=== PATIENT | male | born 1980 | race African-American/Black ===

== ENCOUNTER 2017-07-17 13:29 | Outpatient (CLI) | payer OTHER | END 2017-07-17 13:30 | disposition home or self-care (01) | LOC: ULT 13:29 | PROVIDERS: ATTEND Internal Medicine | DX: I50.9 Heart failure, unspecified (principal); I08.3 Combined rheumatic disorders of mitral, aortic and tricuspid valves | CPT/HCPCS: 93306 ==

== ENCOUNTER 2019-08-28 23:27 | Inpatient (IN) | payer OTHER ==
[2019-08-29] MEDS ORDERED: Senokot S 8.6-50 MG TAB PO PRN (00:18)
[2019-08-29] MEDS ORDERED: Dextrose 50% Abboject 50 ML SYRINGE SLOW IVP PRN (00:20)
[2019-08-29] MEDS ORDERED: Dextrose 5% in Water 1,000 ML IV PRN (00:20)
[2019-08-29] MEDS ORDERED: Sodium Chloride 0.9% 1,000 ML IV SCH (00:30)
[2019-08-29 02:32] VITALS: BMI 42.8
[2019-08-29 05:12] LABS: #Lymphocytes 0.8 thou/uL (1.20-3.40); #Monocytes 0.4 thou/uL (0.11-0.59); #Neutrophils 2.1 thou/uL (1.40-6.50); %Basophils 0.4 % (0.0-1.0); %Eosinophils 0.4 % (0.0-10.0); %Monocytes 12.9 % (0.0-10.0); %Neutrophils 62.4 % (42.0-75.0); Hemoglobin 11.3 g/dL (14.0-18.0); Mean Corpuscular HGB CONC 33.9 g/dL (32.0-36.0); Mean Corpuscular Hemoglobin 27.7 pg (27.0-31.0); Mean Corpuscular Volume 81.8 fL (78.0-98.0); Mean Platelet Volume 9.2 fL (7.4-10.4); Platelet Count 142 thou/uL (130-400); RBC Distribution Width 12.1 % (11.5-14.5); Red Blood Cell (RBC) Count 4.08 mill/uL (4.70-6.10); White Blood Cell (WBC) Count 3.4 thou/uL (4.8-10.8)
[2019-08-29 05:13] LABS: ALT (SGPT) 18 U/L (8-55); AST (SGOT) 22 U/L (5-34); Albumin 3.5 g/dL (3.5-5.0); Alkaline Phosphatase 68 U/L (40-110); Anion Gap 14 mmol/L (10-20); BUN (Urea Nitrogen) 19 mg/dL (8.9-20.6); Bilirubin, Total 0.5 mg/dL (0.2-1.2); Calc. Creatinine Clearance 131 mL/min (70-130); Calcium 8.4 mg/dL (7.8-10.44); Carbon Dioxide 26 mmol/L (22-29); Chloride 100 mmol/L (98-107); Estimated GFR-MDRD 57; Globulin 3.5 g/dL (2.4-3.5); Glucose 203 mg/dL (70-105); Potassium 3.8 mmol/L (3.5-5.1); Sodium 136 mmol/L (136-145)
--- NOTE | 2019-08-29 05:14 | HP ---
CHIEF COMPLAINT: Shortness of breath. HISTORY OF PRESENT ILLNESS: The patient is a 39-year-old male, who initially presented to the hospital with complaints of shortness of breath. The patient states that since last week, he initially started off with some mild headache, was very sensitive to light, which has resolved; however, that followed by some congestion which started . He also started having some cough. No fevers, however, had some chills. He denies any chest pain or chest tightness. The patient stated that he has had some heart failure in the past and thought his symptoms were similar to heart failure, so in order to be more proactive, he came into the ER for further evaluation. He denies any sick contacts, any travels. He states that he continues to work at the [employer]. He was initially seen at an outside ER and was transferred here for his findings. There was suspicion for possible COVID. The patient underwent a CT of the chest, which indicated ground-glass opacities and he also was leukopenic. At this time, a COVID test was performed and the patient was sent here for further evaluation. PAST MEDICAL HISTORY: He has a history of diabetes. He has had hypertension. He is obese, and according to him, he has had heart failure in the past x1. PAST SURGICAL HISTORY: He denies. FAMILY HISTORY: Mother had CAD. ALLERGIES: HE HAS NO KNOWN DRUG ALLERGIES. MEDICATIONS: 1. Metformin 850 mg daily. 2. Lasix 20 mg daily. 3. Lisinopril 5 mg daily. 4. Metformin 500 mg b.i.d. 5. Rosuvastatin 20 mg at bedtime. 6. Spironolactone 25 mg daily. 7. Lasix 40 mg twice a day. 8. Carvedilol 25 mg b.i.d. 9. Glimepiride 2 mg b.i.d. REVIEW OF SYSTEMS: All negative except for the ones mentioned above in the HPI. PHYSICAL EXAMINATION: VITAL SIGNS: As of the following; temperature of 98.3, heart rate of 77, respiratory rate 17, on room air, blood pressure 160/76. GENERAL: He is awake, alert, and oriented x3. He is able to speak complete sentences. CV: S1 and S2 present. No murmurs, rubs, or gallops. LUNGS: Clear to auscultation. No rhonchi or wheezes noted. ABDOMEN: Soft and nontender. Bowel sounds are present x2. EXTREMITIES: Trace edema. Pedal pulses are present x2. NEUROVASCULAR: There are no focal deficits noted. SKIN: No cuts, lesions, or bruises noted. LABORATORY RESULTS: As of the following; sodium of 133, potassium of 4.2, BUN of 19, creatinine of 1.76, glucose of 248. His ferritin is 483.4. Troponin is mildly elevated at 0.052. His C-reactive protein is 7.92. Hemoglobin of 11.2, hematocrit of 34.8, WBCs of 4.4. IMAGING STUDIES: He did have a CT chest, which was concerning, especially on the right side for ground-glass opacities. ASSESSMENT AND PLAN: The patient is a very pleasant 39-year-old male, who presents to the hospital with complaints of worsening shortness of breath. 1. Shortness of breath. The patient was not found to be hypoxic. He is currently on room air. He is doing well. However, his chest CT is very concerning given the ground-glass opacities. I will continue his home medications. He was given antibiotics in the ER, I will continue that for now. I will monitor him closely for any abrupt changes. His BNP was 44; however, in the past, his BNP has been significantly elevated. Back in 2018, he was in the 2000s. He has had an echocardiogram again in 2018, which he had a very low EF of 10% to 15%. He does not have a repeat echocardiogram. Also, he does not have any devices on his chest x-ray, which makes me wonder if the patient's EF actually improved. We will repeat an echocardiogram. We will continue his home medications and will monitor closely. 2. Systolic heart failure. This is from his old echocardiogram. Currently, he comes in with shortness of breath; however, he did have some orthopnea and states that he has been sleeping on a recliner. However, at the same time, he has significant CT findings. We will get an echocardiogram. His shortness of breath could be most likely secondary to the possible viral pneumonia, which is COVID. 3. Diabetes. We will continue his home medication and check Accu-Cheks a.c. and at bedtime. 4. Leukopenia. We will continue to monitor. 5. Mildly elevated troponins. He will continue to trend his troponins. COVID has a greater risk for myocarditis. We will monitor him closely. 6. Deep venous thrombosis prophylaxis. We will put the patient on some SCDs and subcu Lovenox. 7. Mild acute kidney injury on chronic kidney disease. We will hold the patient's lisinopril and continue to monitor him closely. Job ID: [id number]
[2019-08-29 05:17] LABS: Troponin I 0.052 ng/mL (< 0.028)
[2019-08-29] MEDS: cefTRIAXone\\ROCEPHIN 1 GM in Sodium Chloride 0.9% 100 ML IVPB SCH (08:21)
[2019-08-29] MEDS: Furosemide 40 MG TAB PO SCH ×2 (08:21→20:42)
[2019-08-29] MEDS: Spironolactone 25 MG TAB PO SCH (08:22)
[2019-08-29] MEDS: Enoxaparin Sodium 40 MG/0.4 ML SYRINGE SC SCH (08:22)
[2019-08-29] MEDS: Glimepiride 2 MG TAB PO SCH ×2 (08:22→17:55)
[2019-08-29] MEDS: Potassium Chloride 20 MEQ TAB PO SCH (08:22)
[2019-08-29] MEDS: Carvedilol 25 MG TAB PO SCH ×2 (08:22→17:56)
[2019-08-29] MEDS ORDERED: Lisinopril 5 MG TAB PO SCH (09:00)
[2019-08-29] MEDS: Acetaminophen 325 MG TAB PO PRN (09:28)
[2019-08-29] MEDS: Azithromycin 500 MG in Sodium Chloride 0.9% 250 ML 250 ML IVPB SCH (09:28)
[2019-08-29] MEDS: Insulin Regular 300 UNITS/3 ML VIAL SC PRN ×3 (11:59→21:10)
[2019-08-29] MEDS: Rosuvastatin 20 MG TAB PO SCH (20:42)
[2019-08-30] MEDS: Acetaminophen 325 MG TAB PO PRN (00:27)
[2019-08-30 04:42] LABS: #Lymphocytes 1.1 thou/uL (1.20-3.40); #Monocytes 0.4 thou/uL (0.11-0.59); #Neutrophils 3.2 thou/uL (1.40-6.50); %Basophils 0.1 % (0.0-1.0); %Eosinophils 0.6 % (0.0-10.0); %Lymphocytes 23.2 % (21.0-51.0); %Monocytes 8.3 % (0.0-10.0); %Neutrophils 67.9 % (42.0-75.0); Hemoglobin 10.3 g/dL (14.0-18.0); Mean Corpuscular HGB CONC 33.9 g/dL (32.0-36.0); Mean Corpuscular Hemoglobin 27.6 pg (27.0-31.0); Mean Corpuscular Volume 81.3 fL (78.0-98.0); Mean Platelet Volume 8.6 fL (7.4-10.4); Platelet Count 160 thou/uL (130-400); RBC Distribution Width 12.1 % (11.5-14.5); Red Blood Cell (RBC) Count 3.73 mill/uL (4.70-6.10); White Blood Cell (WBC) Count 4.7 thou/uL (4.8-10.8)
[2019-08-30 05:23] LABS: Chloride 102 mmol/L (98-107); Potassium 3.8 mmol/L (3.5-5.1); Sodium 137 mmol/L (136-145)
[2019-08-30 05:24] LABS: Calcium 8.4 mg/dL (7.8-10.44); Glucose 114 mg/dL (70-105)
[2019-08-30 05:26] LABS: Anion Gap 13 mmol/L (10-20); Carbon Dioxide 26 mmol/L (22-29)
[2019-08-30 05:28] LABS: BUN (Urea Nitrogen) 16 mg/dL (8.9-20.6); Calc. Creatinine Clearance 150 mL/min (70-130); Estimated GFR-MDRD 67
[2019-08-30 05:29] LABS: Magnesium 2.1 mg/dL (1.6-2.6)
[2019-08-30] MEDS: Potassium Chloride 20 MEQ TAB PO SCH (08:39)
[2019-08-30] MEDS: Carvedilol 25 MG TAB PO SCH ×2 (08:39→17:38)
[2019-08-30] MEDS: Furosemide 40 MG TAB PO SCH ×2 (08:39→20:13)
[2019-08-30] MEDS: Glimepiride 2 MG TAB PO SCH ×2 (08:39→17:38)
[2019-08-30] MEDS: cefTRIAXone\\ROCEPHIN 1 GM in Sodium Chloride 0.9% 100 ML IVPB SCH (08:39)
[2019-08-30] MEDS: Spironolactone 25 MG TAB PO SCH (08:39)
[2019-08-30] MEDS: Enoxaparin Sodium 40 MG/0.4 ML SYRINGE SC SCH (08:39)
[2019-08-30] MEDS: Lisinopril 20 MG TAB PO SCH (08:40)
[2019-08-30 09:21] LABS: Bacteria/HPF None Seen HPF (None Seen); Bilirubin Negative (Negative); Blood, Urine Negative (Negative); Clarity Clear (Clear); Glucose, Urine (Dipstick) 500 mg/dL (Negative); Leukocyte Negative Leu/uL (Negative); Nitrite Negative (Negative); Protein, Urine (Dipstick) 100 mg/dL (Neg-Trace); RBC/HPF 0-3 HPF (0-3); Squamous Epithelial None Seen HPF (0-3); Urobilinogen Normal mg/dL (Less than 2); WBC/HPF 0-3 HPF (0-3)
[2019-08-30 09:26] LABS: Urine Culture Reflex No No
[2019-08-30] MEDS: Azithromycin 500 MG in Sodium Chloride 0.9% 250 ML 250 ML IVPB SCH (10:32)
[2019-08-30 10:37] LABS: Strep pneumo Urine Ag NEGATIVE (NEGATIVE)
[2019-08-30 10:38] LABS: Legionella Urinary Ag Negative (Negative)
[2019-08-30] MEDS: Insulin Regular 300 UNITS/3 ML VIAL SC PRN ×2 (13:54→17:46)
--- NOTE | 2019-08-30 19:44 | PDOC.HOSPP ---
- Subjective Encounter Date: 08/30/19 Encounter Time: 09:00 Subjective: no overnight events. This morning, informed that he is COVID positive. Had discussion regarding being at risk for complications due to comorbidities despite younger age as well as limited therapeutic options. Has no complaints and feels well. - Objective Vital Signs & Weight: Vital Signs (12 hours) Temp Pulse Resp BP Pulse Ox 08/30/19 17:45 99.3 F 80 18 173/79 H 96 08/30/19 14:00 98.8 F 62 18 145/67 H 96 08/30/19 08:45 98.7 F 70 18 180/79 H 94 L Weight Admit Weight 333 lb Weight 333 lb 14.4 oz I&O: 08/29/19 08/30/19 08/31/19 06:59 06:59 06:59 Intake Total 404 700 240 Balance 404 700 240 Result Diagrams: 08/30/19 04:19 08/30/19 04:19 Additional Labs: Accuchecks 08/30/19 08/30/19 08/30/19 17:49 13:57 06:09 POC Glucose 183 H 174 H 118 H 08/29/19 21:01 POC Glucose 218 H Hospitalist ROS - Review of Systems Constitutional: denies: chills, sweats Respiratory: denies: cough, dry, shortness of breath, hemoptysis, SOB with excertion, pleuritic pain, sputum Cardiovascular: denies: chest pain, palpitations, orthopnea, paroxysmal noc. dyspnea, light headedness Gastrointestinal: denies: nausea, vomiting, abdominal pain, diarrhea - Medication Medications: Active Medications Generic Name Dose Route Start Last Admin Trade Name Uriq PRN Reason Stop Dose Admin Acetaminophen 650 mg 08/29/19 00:18 08/30/19 00:27 Tylenol PO 650 mg Q4H PRN Administration Headache/Fever/Mild Pain (1-3) Carvedilol 25 mg 08/29/19 08:00 08/30/19 17:38 Coreg PO 25 mg BID-WM CATRINA Administration Enoxaparin Sodium 40 mg 08/29/19 09:00 08/30/19 08:39 Lovenox SC 40 mg 0900 CATRINA Administration Furosemide 40 mg 08/29/19 09:00 08/30/19 08:39 Lasix PO 40 mg BID CATRINA Administration Glimepiride 2 mg 08/29/19 08:00 08/30/19 17:38 Amaryl PO 2 mg BID-WM CATRINA Administration Azithromycin 500 mg/ Sodium 250 mls @ 250 mls/hr 08/29/19 09:00 08/30/19 10: 32 Chloride IVPB 250 mls Q24HR CATRINA Administration Ceftriaxone Sodium 1 gm/ 100 mls @ 200 mls/hr 08/29/19 08:00 08/30/19 08:39 Sodium Chloride IVPB 100 mls Q24HR CATRINA Administration Insulin Human Regular 0 units 08/29/19 00:20 08/30/19 17:46 Humulin R SC 2 unit .MILD SLIDING SCALE PRN Administration Mild Correctional Scale Lisinopril 20 mg 08/30/19 09:00 08/30/19 08:40 Zestril PO 20 mg DAILY CATRINA Administration Potassium Chloride 20 meq 08/29/19 08:00 08/30/19 08:39 K-Dur PO 20 meq QAM-WM CATRINA Administration Rosuvastatin Calcium 20 mg 08/29/19 21:00 08/29/19 20:42 Crestor PO 20 mg HS CATRINA Administration Sodium Chloride 10 ml 08/29/19 09:00 08/30/19 08:40 Flush - Normal Saline IVF 10 ml Q12HR CATRINA Administration Spironolactone 25 mg 08/29/19 08:00 08/30/19 08:39 Aldactone PO 25 mg QAM-WM CATRINA Administration - Exam General Appearance: NAD, awake alert Heart: RRR, no murmur, no gallops, no rubs Respiratory: CTAB, no wheezes, no rales, no ronchi Gastrointestinal: soft, non-tender, non-distended, normal bowel sounds Psychiatric: normal affect, normal behavior, A&O x 3 Hosp A/P (1) Pneumonia due to COVID-19 virus Code(s): U07.1 - COVID-19; J12.89 - OTHER VIRAL PNEUMONIA Status: Acute (2) Type 2 diabetes mellitus Status: Acute (3) Hypertension Code(s): I10 - ESSENTIAL (PRIMARY) HYPERTENSION Status: Acute (4) CKD (chronic kidney disease), stage III Code(s): N18.3 - CHRONIC KIDNEY DISEASE, STAGE 3 (MODERATE) Status: Acute (5) Heart failure Code(s): I50.9 - HEART FAILURE, UNSPECIFIED Status: Acute - Plan * covid pneumonia * continue ceftriaxone azithro * supportive management * high risk due to significant comorbidites * HTN * above goal of 130/80 * * added chlorthalidone to home regimen * CKD 3 * at baseline * HFrEF * last echo 2017, EF 15-20% * * full code
[2019-08-30] MEDS: Rosuvastatin 20 MG TAB PO SCH (20:13)
[2019-08-31] MEDS: Chlorthalidone 25 MG TAB PO SCH (10:26)
[2019-08-31] MEDS: Lisinopril 20 MG TAB PO SCH (10:26)
[2019-08-31] MEDS: Enoxaparin Sodium 40 MG/0.4 ML SYRINGE SC SCH (10:26)
[2019-08-31] MEDS: Spironolactone 25 MG TAB PO SCH (10:26)
[2019-08-31] MEDS: Carvedilol 25 MG TAB PO SCH ×2 (10:27→16:42)
[2019-08-31] MEDS: Glimepiride 2 MG TAB PO SCH ×2 (10:27→16:42)
[2019-08-31] MEDS: Potassium Chloride 20 MEQ TAB PO SCH (10:27)
[2019-08-31] MEDS: Furosemide 40 MG TAB PO SCH ×2 (10:27→20:15)
[2019-08-31] MEDS: cefTRIAXone\\ROCEPHIN 1 GM in Sodium Chloride 0.9% 100 ML IVPB SCH (10:28)
[2019-08-31] MEDS: Azithromycin 500 MG in Sodium Chloride 0.9% 250 ML 250 ML IVPB SCH (11:43)
[2019-08-31] MEDS: Insulin Regular 300 UNITS/3 ML VIAL SC PRN (13:41)
--- NOTE | 2019-08-31 14:57 | EKG ---
Test Reason : PNA Blood Pressure : / mmHG Vent. Rate : 084 BPM Atrial Rate : 084 BPM P-R Int : 170 ms QRS Dur : 090 ms QT Int : 438 ms P-R-T Axes : 032 -21 -03 degrees QTc Int : 517 ms Poor data quality, interpretation may be adversely affected Normal sinus rhythm Minimal voltage criteria for LVH, may be normal variant Prolonged QT No STEMI Abnormal ECG Confirmed by LEIGH ANN RUBIO M.D. ([id number]), editor magazine SUKHDEEP RIVAS ([id number]) on 08/31/2019 2:56:35 PM Referred By: Confirmed By:LEIGH ANN RUBIO M.D.
[2019-08-31] MEDS: Rosuvastatin 20 MG TAB PO SCH (20:15)
--- NOTE | 2019-08-31 21:06 | PDOC.HOSPP ---
- Subjective Encounter Date: 08/31/19 Encounter Time: 09:00 Subjective: no overnight events. this morning feels well and has no complaints. - Objective Vital Signs & Weight: Vital Signs (12 hours) Temp Pulse Resp BP Pulse Ox 08/31/19 16:40 96.9 F L 68 16 168/77 H 96 08/31/19 13:20 97.3 F L 77 16 142/79 H 97 08/31/19 10:30 98.8 F 66 18 146/76 H 98 Weight Admit Weight 333 lb Weight 333 lb 14.4 oz I&O: 08/30/19 08/31/19 09/01/19 06:59 06:59 06:59 Intake Total 700 480 780 Balance 700 480 780 Result Diagrams: 08/30/19 04:19 08/30/19 04:19 Additional Labs: Accuchecks 08/31/19 08/31/19 08/31/19 20:21 16:52 11:59 POC Glucose 205 H 110 164 H 08/31/19 04:27 POC Glucose 120 H Hospitalist ROS - Review of Systems Constitutional: denies: fever, chills, sweats, weakness, malaise, other Respiratory: denies: cough, dry, shortness of breath, hemoptysis, SOB with excertion, pleuritic pain, sputum, wheezing, other Cardiovascular: denies: chest pain, palpitations, orthopnea, paroxysmal noc. dyspnea, edema, light headedness, other Gastrointestinal: denies: nausea, vomiting, abdominal pain, diarrhea, constipation, melena, hematochezia, other Genitourinary: denies: dysuria, frequency, incontinence, hematuria, retention, other - Medication Medications: Active Medications Generic Name Dose Route Start Last Admin Trade Name Freq PRN Reason Stop Dose Admin Acetaminophen 650 mg 08/29/19 00:18 08/30/19 00:27 Tylenol PO 650 mg Q4H PRN Administration Headache/Fever/Mild Pain (1-3) Carvedilol 25 mg 08/29/19 08:00 08/31/19 16:42 Coreg PO 25 mg BID-WM CATRINA Administration Chlorthalidone 25 mg 08/31/19 09:00 08/31/19 10:26 Hygroton PO 25 mg DAILY CATRINA Administration Enoxaparin Sodium 40 mg 08/29/19 09:00 08/31/19 10:26 Lovenox SC 40 mg 0900 CATRINA Administration Furosemide 40 mg 08/29/19 09:00 08/31/19 20:15 Lasix PO 40 mg BID CATRINA Administration Glimepiride 2 mg 08/29/19 08:00 08/31/19 16:42 Amaryl PO 2 mg BID-WM CATRINA Administration Azithromycin 500 mg/ Sodium 250 mls @ 250 mls/hr 08/29/19 09:00 08/31/19 11: 43 Chloride IVPB 250 mls Q24HR CATRINA Administration Ceftriaxone Sodium 1 gm/ 100 mls @ 200 mls/hr 08/29/19 08:00 08/31/19 10:28 Sodium Chloride IVPB 100 mls Q24HR CATRINA Administration Insulin Human Regular 0 units 08/29/19 00:20 08/31/19 13:41 Humulin R SC 2 unit .MILD SLIDING SCALE PRN Administration Mild Correctional Scale Lisinopril 20 mg 08/30/19 09:00 08/31/19 10:26 Zestril PO 20 mg DAILY CATRINA Administration Potassium Chloride 20 meq 08/29/19 08:00 08/31/19 10:27 K-Dur PO 20 meq QAM-WM CATRINA Administration Rosuvastatin Calcium 20 mg 08/29/19 21:00 08/31/19 20:15 Crestor PO 20 mg HS CATRINA Administration Sodium Chloride 10 ml 08/29/19 09:00 08/31/19 20:15 Flush - Normal Saline IVF 10 ml Q12HR CATRINA Administration Spironolactone 25 mg 08/29/19 08:00 08/31/19 10:26 Aldactone PO 25 mg QAM-WM CATRINA Administration - Exam General Appearance: NAD, awake alert Heart: RRR, no murmur, no gallops, no rubs Respiratory: CTAB, no wheezes, no rales, no ronchi Gastrointestinal: soft, non-tender, non-distended, normal bowel sounds Extremities: 1+ LE edema Psychiatric: normal affect, normal behavior, A&O x 3 Hosp A/P (1) Pneumonia due to COVID-19 virus Code(s): U07.1 - COVID-19; J12.89 - OTHER VIRAL PNEUMONIA Status: Acute (2) Type 2 diabetes mellitus Status: Acute (3) Hypertension Code(s): I10 - ESSENTIAL (PRIMARY) HYPERTENSION Status: Acute (4) CKD (chronic kidney disease), stage III Code(s): N18.3 - CHRONIC KIDNEY DISEASE, STAGE 3 (MODERATE) Status: Acute (5) Heart failure Code(s): I50.9 - HEART FAILURE, UNSPECIFIED Status: Acute - Plan * covid pneumonia * continue ceftriaxone azithro * supportive management * high risk due to significant comorbidites * HTN * above goal of 130/80 but better controlled * * continue current regimen * CKD 3 * at baseline * HFrEF * last echo 2017, EF 15-20% * * repeat echo; may require pacemaker/lifevest * * full code
[2019-09-01] MEDS: Furosemide 40 MG TAB PO SCH (09:09)
[2019-09-01] MEDS: Lisinopril 20 MG TAB PO SCH (09:09)
[2019-09-01] MEDS: Spironolactone 25 MG TAB PO SCH (09:09)
[2019-09-01] MEDS: Potassium Chloride 20 MEQ TAB PO SCH (09:10)
[2019-09-01] MEDS: Glimepiride 2 MG TAB PO SCH ×2 (09:10→18:41)
[2019-09-01] MEDS: cefTRIAXone\\ROCEPHIN 1 GM in Sodium Chloride 0.9% 100 ML IVPB SCH (09:10)
[2019-09-01] MEDS: Chlorthalidone 25 MG TAB PO SCH (09:10)
[2019-09-01] MEDS: Enoxaparin Sodium 40 MG/0.4 ML SYRINGE SC SCH (09:10)
[2019-09-01] MEDS: Carvedilol 25 MG TAB PO SCH ×2 (09:10→18:41)
[2019-09-01 11:10] VITALS: BP 139/69; TEMP 96.6
[2019-09-01] MEDS: Azithromycin 500 MG in Sodium Chloride 0.9% 250 ML 250 ML IVPB SCH (12:59)
--- NOTE | 2019-09-01 13:47 | PDOC.HOSPP ---
- Subjective Encounter Date: 09/01/19 Encounter Time: 08:00 Subjective: no overnight evnets. this morning, feels better than before and has no complaints. - Objective Vital Signs & Weight: Vital Signs (12 hours) Temp Pulse Resp BP Pulse Ox 09/01/19 11:09 96.6 F L 76 18 139/69 98 09/01/19 09:30 96.4 F L 76 18 139/71 98 09/01/19 04:00 97.8 F 67 16 165/72 H 96 Weight Admit Weight 333 lb Weight 333 lb 14.4 oz I&O: 08/31/19 09/01/19 09/02/19 06:59 06:59 06:59 Intake Total 480 780 Balance 480 780 Result Diagrams: 08/30/19 04:19 08/30/19 04:19 Additional Labs: Accuchecks 09/01/19 09/01/19 08/31/19 10:59 05:38 20:21 POC Glucose 160 H 138 H 205 H 08/31/19 08/31/19 16:52 11:59 POC Glucose 110 164 H Hospitalist ROS - Review of Systems Constitutional: denies: fever, chills, sweats, weakness, malaise, other Respiratory: denies: cough, dry, shortness of breath, hemoptysis, SOB with excertion, pleuritic pain, sputum, wheezing, other Cardiovascular: denies: chest pain, palpitations, orthopnea, paroxysmal noc. dyspnea, edema, light headedness, other Gastrointestinal: denies: nausea, vomiting, abdominal pain, diarrhea, constipation, melena, hematochezia, other Genitourinary: denies: dysuria, frequency, incontinence, hematuria, retention, other - Medication Medications: Active Medications Generic Name Dose Route Start Last Admin Trade Name Freq PRN Reason Stop Dose Admin Acetaminophen 650 mg 08/29/19 00:18 08/30/19 00:27 Tylenol PO 650 mg Q4H PRN Administration Headache/Fever/Mild Pain (1-3) Carvedilol 25 mg 08/29/19 08:00 09/01/19 09:10 Coreg PO 25 mg BID-WM CATRINA Administration Chlorthalidone 25 mg 08/31/19 09:00 09/01/19 09:10 [place]gro[place] PO 25 mg DAILY CATRINA Administration Enoxaparin Sodium 40 mg 08/29/19 09:00 09/01/19 09:10 Lovenox SC 40 mg 0900 CATRINA Administration Furosemide 40 mg 08/29/19 09:00 09/01/19 09:09 Lasix PO 40 mg BID CATRINA Administration Glimepiride 2 mg 08/29/19 08:00 09/01/19 09:10 Amaryl PO 2 mg BID-WM CATRINA Administration Azithromycin 500 mg/ Sodium 250 mls @ 250 mls/hr 08/29/19 09:00 09/01/19 12: 59 Chloride IVPB 250 mls Q24HR CATRINA Administration Ceftriaxone Sodium 1 gm/ 100 mls @ 200 mls/hr 08/29/19 08:00 09/01/19 09:10 Sodium Chloride IVPB 100 mls Q24HR CATRINA Administration Insulin Human Regular 0 units 08/29/19 00:20 08/31/19 13:41 Humulin R SC 2 unit .MILD SLIDING SCALE PRN Administration Mild Correctional Scale Lisinopril 20 mg 08/30/19 09:00 09/01/19 09:09 Zestril PO 20 mg DAILY CATRINA Administration Potassium Chloride 20 meq 08/29/19 08:00 09/01/19 09:10 K-Dur PO 20 meq QAM- CATRINA Administration Rosuvastatin Calcium 20 mg 08/29/19 21:00 08/31/19 20:15 Crestor PO 20 mg HS CATRINA Administration Sodium Chloride 10 ml 08/29/19 09:00 09/01/19 09:11 Flush - Normal Saline IVF 10 ml Q12HR CATRINA Administration Spironolactone 25 mg 08/29/19 08:00 09/01/19 09:09 Aldactone PO 25 mg QAM-WM CATRINA Administration - Exam General Appearance: NAD, awake alert Heart: RRR, no murmur, no gallops, no rubs, normal peripheral pulses Respiratory: CTAB, no wheezes, no rales, no ronchi, normal chest expansion, no tachypnea, normal percussion Gastrointestinal: soft, non-tender, non-distended, normal bowel sounds, no palpable masses, no hepatomegaly, no splenomegaly, no bruit Hosp A/P (1) Pneumonia due to COVID-19 virus Code(s): U07.1 - COVID-19; J12.89 - OTHER VIRAL PNEUMONIA Status: Acute (2) Type 2 diabetes mellitus Status: Acute (3) Hypertension Code(s): I10 - ESSENTIAL (PRIMARY) HYPERTENSION Status: Acute (4) CKD (chronic kidney disease), stage III Code(s): N18.3 - CHRONIC KIDNEY DISEASE, STAGE 3 (MODERATE) Status: Acute (5) Heart failure Code(s): I50.9 - HEART FAILURE, UNSPECIFIED Status: Acute - Plan * covid pneumonia * continue ceftriaxone azithro * supportive management * high risk due to significant comorbidites * HTN * above goal of 130/80 but better controlled * * continue current regimen * CKD 3 * at baseline * HFrEF * last echo 2017, EF 15-20% * * repeat echo; may require pacemaker/lifevest * * full code
--- NOTE | 2019-09-01 15:45 | CON ---
DATE OF CONSULTATION: 09/01/2019 REASON FOR CONSULTATION: COVID pneumonia, cardiomyopathy. HISTORY OF PRESENT ILLNESS: A 39-year-old with history of hypertension, obesity, type 2 diabetes mellitus, and some form of cardiomyopathy diagnosed in the past with very low EF. The patient has been on Coreg and diuretics and according to him, it has improved, although he does not recall any followup echocardiogram. He is followed by Dr. Kim in [place]. He developed shortness of breath and cough worsening over the past week and 3 days and presented for admission with a suspicion of COVID pneumonia, which was also supported by results of the CT scan of chest. He had lymphocytopenia as well. His COVID test has returned positive and he has been admitted since the , I believe. He has actually had a fairly benign course and is feeling better than previously. He is at the 9th or 10th day after the onset of symptoms and he is not coughing anymore and has not had a fever since the . Denies any headaches. No sore throat, odynophagia, or dysphagia. No back pain. No chest pain or abdominal pain. No diarrhea. His sense of taste and smell has been preserved. No joint symptoms or myalgias. PAST MEDICAL HISTORY: Type 2 diabetes, hypertension, cardiomyopathy with a very low EF in the past. I do not see any record of catheterization or any other workup for his cardiomyopathy. He had been treated by Dr. Kim in [place] with Coreg and diuretics. PAST SURGICAL HISTORY: Negative. FAMILY HISTORY: Coronary artery disease and diabetes. ALLERGIES: NONE. MEDICATIONS: Had been on: 1. Metformin. 2. Lasix. 3. Lisinopril. 4. Rosuvastatin. 5. Spironolactone. 6. Coreg. 7. Glimepiride. His current medications include: 1. Azithromycin. 2. Ceftriaxone. 3. Furosemide. 4. Insulin. PHYSICAL EXAMINATION: VITAL SIGNS: He has been afebrile since August 29, blood pressure 130/60, pulse 76, respirations 18, and O2 saturation 98%. SKIN: Normal. There is no lymphadenopathy. The patient has a peripheral IV access and is voiding in the urinal. HEENT: Ocular movements conjugate. Oral cavity normal. NECK: Supple. LUNGS: With fairly clear breath sounds. HEART: S1 and S2. Regular rate without murmurs. ABDOMEN: Soft, not distended or tender. No ascites. : No bladder distention. EXTREMITIES: No joint inflammatory activity. NEUROLOGIC: Nonfocal. LABORATORY DATA: White cell count from admission was 3.4, now 4.7; lymphocytes are up to 1.1. D-dimer 1.4 from yesterday and CRP 6.13. Urinalysis normal except for glycosuria. Legionella pneumophila and Strep pneumoniae antigen, negative. There is a CT with mostly right-sided ground-glass opacities, likewise on a chest x-ray. ASSESSMENT: 1. Cardiomyopathy with unclear prior workup. Does not appear that he ever had a catheterization. He has been managed with Coreg and diuretics with improvement over the past year or so. 2. COVID-19 pneumonia with a fairly benign course. Inflammatory markers are relatively low. This is the 10th day of illness and usually if there is going to be deterioration, it happens between the 5th and the 12th day of the illness. We will repeat inflammatory markers, but I think he probably can be discharged. Discontinue antimicrobial therapy since the likelihood of bacterial pneumonia is low in this case. We will check human immunodeficiency virus serology in addition to the inflammatory markers repeat. The patient lives with his parents and they do have some chronic illnesses and he has already arranged to be in quarantine with a friend in [place], who has a suitable place for him to be housed for the duration of quarantine, which should be at least for 7 days up to 14 days. Job ID: [id number]
[2019-09-01 17:58] LABS: HIV (1/2) Antibody/Antigen Non-Reactive (NonReactive); HIV 1/2 INDEX 0.18 S/CO (<1.00)
--- NOTE | 2019-09-02 12:24 | DIS ---
DATE OF ADMISSION: 08/29/2019 DATE OF DISCHARGE: 09/01/2019 HOSPITAL COURSE: Mr. Jacobs is a 39-year-old male with medical history of hypertension, obesity, type 2 diabetes, and heart failure with severely reduced ejection fraction, who came in with shortness of breath and cough, worsening over the past week. He was found to have COVID pneumonia. Considering the patient was on his 10th day after onset of symptoms, the mild presentation, and input received by the Infectious Disease service, the patient was discharged home to isolation. He was provided with a surgical mask as well as detailed information regarding isolation and indications to return to the ED in case he deescalates. PHYSICAL EXAMINATION: VITAL SIGNS: Blood pressure 139/69, heart rate 76, respiratory rate 18, oxygen saturation 98% on room air, temperature 96.6 Fahrenheit. The patient was afebrile throughout his inpatient stay with the exception of the first 24 hours, in which he had a low-grade fever of 101.5 max. GENERAL APPEARANCE: No apparent distress. Awake and alert. Morbidly obese. HEENT: Atraumatic, normocephalic. HEART: Regular rate and rhythm. No murmurs, no gallops, no rubs. LUNGS: Clear to auscultation bilaterally. No wheezing, rales, or rhonchi. ABDOMEN: Soft, nontender, nondistended. Normal bowel sounds. EXTREMITIES: Bilateral lower extremity edema, +1. PSYCHIATRIC: Normal mood. Normal affect. Alert and oriented x3. DISCHARGE MEDICATIONS: The patient's medication regimen was not changed. DISCHARGE INSTRUCTIONS: He was requested to follow up with his language specialist for further management of his heart failure considering his grossly reduced ejection fraction in 2018. We will require a repeat echo to determine the need for further management of his heart failure. Job ID: [id number]
--- NOTE | 2019-09-03 04:29 | PQF ---
[employer] KEE Headley JOANA ADONIS [id number] [address] [place] [address] [id number] CLINICAL DOCUMENTATION CLARIFICATION FORM: POST DISCHARGE Addendum to original discharge summary date: ____ Late entry note date: __ No reason for this query. Sepsis was never mentioned in any of the documentation. DATE: 08/29/2019 ATTN: Adonis Walker Please exercise your independent, professional judgment in responding to the clarification form. Clinical indicators are provided on the bottom of this form for your review Please check appropriate box(es): [ ] Sepsis [ x ] Localized infection without sepsis [ ] Other diagnosis [ ] Unable to determine In addition, please specify: Present on Admission (POA): [ x ] Yes [ ] No [ ] Unable to determine For continuity of documentation, please document condition throughout progress notes and discharge summary. Thank You. CLINICAL INDICATORS - SIGNS / SYMPTOMS / LABS Temperature is 101.5 F on 08/28 - Vital signs C-Reactive protein 7.92 on 08/28 - Laboratory Started having some cough. No fevers, however, had some chills - H and P dated 08/28 by Loren Nascimento Shortness of breath could be most likely secondary to possible viral pneumonia, which is COVID - H and P dated 08/28 by Loren Nascimento RISK FACTORS Pneumonia due to COVID-19 virus - Hospital medicine progress note 08/31 by Adonis Walker Diabetes mellitus - Hospital medicine progress note 08/31 by Adonis Walker TREATMENTS: IV Azithromycin from 08/28 to 08/31 - Medications IV Rocephin from 08/28 to 08/31 - Medications IV fluids from 08/28 to 08/31 - Medications (This form is maintained as a part of the permanent medical record) 2014 [employer]. All Rights Reserved [email or web address]
== END 2019-09-01 20:14 | disposition home or self-care (01) | DRG 177 ==
LOC: ERS 23:27 → 2SW 08-29 00:24
PROVIDERS: ADMIT Internal Medicine; ATTEND Internal Medicine
PROC: 8E0ZXY6 Isolation (ICD-10-PCS; principal; 2019-08-29)
DX: U07.1 COVID-19 (principal); J12.89 Other viral pneumonia; I50.22 Chronic systolic (congestive) heart failure; N17.9 Acute kidney failure, unspecified; I13.0 Hypertensive heart and chronic kidney disease with heart failure and stage 1 through stage 4 chronic kidney disease, or unspecified chronic kidney disease; I42.9 Cardiomyopathy, unspecified; Z68.42 Body mass index [BMI] 45.0-49.9, adult; D72.819 Decreased white blood cell count, unspecified; R79.89 Other specified abnormal findings of blood chemistry; E11.22 Type 2 diabetes mellitus with diabetic chronic kidney disease; N18.3 Chronic kidney disease, stage 3 (moderate); E66.9 Obesity, unspecified; Z79.84 Long term (current) use of oral hypoglycemic drugs
CPT/HCPCS: 36415; 36416; 80048; 80053; 81001; 82728; 83735; 84145; 84484; 85025; 85379; 86140; 87040; 87389; 87449; 87899; 93005; J0456; J0696; J1650; J1815; J3490; J7050